=== PATIENT | female | born 2000 | race Caucasian/White ===

== ENCOUNTER 2022-07-25 21:23 | Emergency (ER) | payer OTHER, SELFPAY ==
[2022-07-25] VITALS (8 sets, daily range): BP systolic 119; BP diastolic 80; PULSE 71–96; RESP 18; TEMP 37.1; O2SAT 97–99; BMI 26.5
--- NOTE | 2022-07-25 21:33 | ED_ITS ---
HPI - Weakness General Time Seen by Provider: 21:33 Date Seen: 07/25/22 Chief complaint: Weakness Stated complaint: reaction to antibiotic Time Seen by Provider: 07/25/22 21:33 Source: patient, RN notes reviewed and old records reviewed Mode of arrival: ambulatory Limitations: no limitations History of Present Illness HPI Narrative: Freida is a very pleasant 22-year-old female with recent treatment for C diff who comes to the emergency room complaining of shakiness, weakness and a bad taste in her mouth as long with headache. Patient notes that she had been treated with 2 rounds of antibiotics for otitis media and tested positive for C diff recently. She started vancomycin yesterday and has noticed that her stools have slowed down. She feels somewhat bloated but has not had any vomiting. She notes that she has a headache, a bitter taste in her mouth, shakiness and feels somewhat weak. She talked to the nurse line and they said she needed to come to the emergency room to be evaluated for those symptoms. She has not had any hives or itching. She has not had a fever but has been sweaty today. Related Data Home Medications Medication Instructions Recorded Confirmed albuterol sulfate 90 mcg/actuation 2 puff inhalation Q6H PRN 09/23/21 07/25/22 aerosol inhaler clindamycin phosphate 1 % topical 1 applic topical QDAY 09/23/21 07/25/22 gel, once daily etonogestrel 68 mg subdermal 1 implant subdermal ONCE 09/23/21 07/25/22 implant (Nexplanon) sertraline 100 mg tablet (Zoloft) 100 mg PO QDAY 09/23/21 07/25/22 vancomycin 125 mg capsule 125 mg PO QID 07/25/22 07/25/22 Allergies Allergy/AdvReac Type Severity Reaction Status Date / Time No Known Drug Allergies Allergy Verified 09/23/21 18:32 Review of Systems Status of ROS: Reports: 10 or more systems reviewed and unremarkable except as noted in History and below Const: Reports: malaise; Denies: fever or chills Eyes: Denies: change in vision ENMT: Denies: throat pain, neck pain, throat swelling or difficulty swallowing Cardio: Denies: chest pain, swelling of feet/ankles, lightheadedness or shortness of breath with exertion Resp: Denies: shortness of breath, cough or wheezing GI: Reports: diarrhea; Denies: abdominal pain, nausea, vomiting or difficulty swallowing : Denies: painful urination Musculo: Denies: neck pain Integ/Breast: Denies: rash or itching Neuro: Reports: headache and weakness in extremities; Denies: numbness in extremities Allergy/Immuno: Denies: throat swelling or wheezing PFSH [facility] Medical History Exercise-induced asthma ?J45.990 - Exercise induced bronchospasm (ICD-10) Social History Smoking Status: Never smoker Do you use any of these nicotine containing products: None Second hand tobacco smoke exposure: No How often do you have a drink containing alcohol: never AUDIT-C Alcohol total score: 0 Non-prescribed substance use: denies use Exam Narrative: Exam Narrative: Alert and oriented. Laughing with mom occasionally. She is somewhat diaphoretic. Face is slightly flushed but is not red. Eyes are clear. Oral cavity with moist mucous membranes. Neck is supple. Heart with regular rate and rhythm and lungs are clear to auscultation. Abdomen is soft nontender. Moving all extremities. Const: Vital Signs, click to edit/add: Vital Signs - 24 hr 07/25/22 21:29 07/25/22 22:21 07/25/22 22:30 Temperature 98.7 F Pulse Rate 78 76 Pulse Rate [Pulse Oximeter] 96 Respiratory Rate 18 Blood Pressure [Le ft Upper Arm] 119/80 Pulse Oximetry 97 97 97 Oxygen Delivery Me thod Room Air 07/25/22 22:45 07/25/22 23:00 07/25/22 23:15 Temperature Pulse Rate 72 71 77 Pulse Rate [Pulse Oximeter] Respiratory Rate Blood Pressure [Le ft Upper Arm] Pulse Oximetry 98 98 99 Oxygen Delivery Me thod 07/25/22 23:30 07/25/22 23:45 Temperature Pulse Rate 79 75 Pulse Rate [Pulse Oximeter] Respiratory Rate Blood Pressure [Le ft Upper Arm] Pulse Oximetry 99 98 Oxygen Delivery Me thod Documenting provider has reviewed patient's vital signs: yes Course Course Hospital Course: Will check electrolytes and CBC as well as CRP and urinalysis. Reevaluation(s) Reevaluation #1: Patient notes that she does not feel any different after 1 L of normal saline. I have told her that her labs are all normal at this time including white count CRP electrolytes. She has not urinated at this point. Reevaluation #2: Patient notes that she has been able to urinate now. If this is without evidence of UTI she may be discharged. Vital Signs Vital signs: Initial Vital Signs Temperature 98.7 F 07/25/22 21:29 Temperature Source Temporal Artery Scan 07/25/22 21:29 Pulse Rate 96 07/25/22 21:29 Pulse Rhythm Regular 07/25/22 21:29 Respiratory Rate 18 07/25/22 21:29 Blood Pressure 119/80 07/25/22 21:29 Blood Pressure Mean 93 07/25/22 21:29 Pulse Oximetry 97 07/25/22 21:29 Oxygen Delivery Method Room Air 07/25/22 21:29 Vital Signs Temperature 98.7 F 07/25/22 21:29 Pulse Rate 96 07/25/22 21:29 Respiratory Rate 18 07/25/22 21:29 Blood Pressure 119/80 07/25/22 21:29 Pulse Oximetry 97 07/25/22 21:29 Oxygen Delivery Method Room Air 07/25/22 21:29 Temperature 98.7 F 07/25/22 21:29 Pulse Rate 75 07/25/22 23:45 Respiratory Rate 18 07/25/22 21:29 Blood Pressure 119/80 07/25/22 21:29 Pulse Oximetry 98 07/25/22 23:45 Oxygen Delivery Method Room Air 07/25/22 21:29 MDM - Weakness MDM Narrative Medical decision making narrative: 1. Medication side effect-patient is noting that her stools have improved but that she is feeling somewhat weak, sweaty and has a bad taste in her mouth. This is most likely side effect of vancomycin. Given the fact that it is working well I would not switch this medication and I have encouraged her to keep taking it for the full prescribed dose. I would recommend pushing fluids at this time. Her abdomen is soft and although feeling bloated she has no disco mfort. She has no blood in her stool. She has not been vomiting. She is nontoxic in appearance with we assured reassuring vital signs and labs. 2. Dehydration-heart rate much improved from 96-75. 2. Disposition-home at this time. Seek medical attention for worsening symptoms. Medical Records Attestation: I reviewed the patient's medical records. Lab Data Attestation: I reviewed the patient's lab results. Labs: Lab Results 07/25/22 07/25/22 Range/Units 22:10 23:15 WBC 9.37 (4.50-11.00) K/uL RBC 4.52 (4.00-5.20) m/uL Hgb 12.9 (12.0-16.0) gm/dL Hct 39.4 (33.0-51.0) % MCV 87 (80-100) fL MCH 29 (26-34) pg MCHC 33 (32-36) gm/dL RDW Coeff of Cyn 13.6 (11.5-15.5) % Plt Count 334 (140-440) K/uL Neut % (Auto) 61.3 (42.0-72.0) % Lymph % (Auto) 29.8 (20-44) % [place] % (Auto) 5.9 (0.0-11.0) % Eos % (Auto) 2.3 (0.0-7.0) % Baso % (Auto) 0.4 (0.0-3.0) % Neut # (Auto) 5.74 (1.7-7.0) K/uL Lymph # (Auto) 2.79 (0.90-2.90) K/uL [place] # (Auto) 0.60 (0.00-0.90) K/UL Eos # (Auto) 0.22 (0.00-0.50) K/uL Baso # (Auto) 0.04 (0.00-0.30) K/uL Sodium 135 (135-149) mmol/L Potassium 4.0 (3.6-5.1) mmol/L Chloride 102 (96-114) mmol/L Carbon Dioxide 26 (20-32) mmol/L BUN 12 (5-24) mg/dL Creatinine 0.6 (0.5-1.5) mg/dL Estimated Creat Clear 165.77 Estimated GFR 131 ml/min Glucose 122 H (60-115) mg/dL Calcium 9.0 (8.4-10.6) mg/dL Total Bilirubin 0.6 (0.1-1.5) mg/dL AST 35 (12-35) U/L ALT 25 (4-35) U/L Alkaline Phosphatase 102 (40-150) U/L C-Reactive Protein 1.0 (0.5-1.0) mg/dL Total Protein 7.5 (6.0-8.3) g/dL Albumin 4.2 (3.3-5.0) g/dL Urine Color Yellow (Yellow) Urine Appearance Clear (Clear) Urine pH 5.5 (5.0-8.5) Ur Specific [place] 1.025 (1.000-1.030) Urine Protein Negative (Negative) Urine Glucose (UA) Negative (Negative) Urine Ketones Negative (Negative) Urine Blood 3+ A (Negative) Urine Nitrite Negative (Negative) Urine Bilirubin Negative (Negative) Urine Urobilinogen 0.2 (0.2-1.0) Ur Leukocyte Esterase Negative (Negative) Urine RBC 5-10 A (0-2) Urine WBC 0-2 (0-5) Ur Squamous Epith Cells Few (None-Few) Urine Bacteria None (None) Discharge Plan Discharge Clinical Impression: Drug side effects Patient Disposition: Home, Self-Care Condition: Unchanged Additional Instructions: Push fluids as much as possible fever. Tylenol may be used for discomfort. I am sorry that you do not feel well on this medication but I am encouraging you to take it as directed for its full course. Please return to the emergency room if you are worsening with high fever, vomiting, increasing abdominal pain. Prescriptions: No Action albuterol sulfate 90 mcg/actuation HFA aerosol inhaler 2 puff inhalation Q6H PRN clindamycin phosphate 1 % gel, once daily 1 applic topical QDAY sertraline [Zoloft] 100 mg tablet 100 mg PO QDAY Nexplanon 68 mg implant 1 implant subdermal ONCE Rx Instructions: as a single dose vancomycin 125 mg capsule 125 mg PO QID Follow Up/Referrals: Provider,Not a Local [Primary Care Provider] - Stand Alone Forms: [facility] Info Instructions
[2022-07-25] MEDS: 0.9 % SODIUM CHLORIDE 1000 ml 1,000 ML IV (22:18)
[2022-07-25 22:34] LABS: Albumin* 4.2 g/dL (3.3-5.0); Chloride* 102 mmol/L (96-114); Sodium* 135 mmol/L (135-149)
[2022-07-25 22:37] LABS: Basophils Absolute Auto 0.04 K/uL (0.00-0.30); Basophils Percent Auto 0.4 % (0.0-3.0); Bilirubin Total* 0.6 mg/dL (0.1-1.5); Carbon Dioxide* 26 mmol/L (20-32); Creatinine* 0.6 mg/dL (0.5-1.5); Eosinophils Absolute Auto 0.22 K/uL (0.00-0.50); Eosinophils Percent Auto 2.3 % (0.0-7.0); Est. Creatinine Clearance* 165.77; Estimated Glomerular Filt Rate 131 ml/min; Hematocrit 39.4 % (33.0-51.0); Hemoglobin* 12.9 gm/dL (12.0-16.0); Immature Granulocytes Abs Auto 0.03 K/uL (0.00-0.30); Immature Granulocytes Pct Auto 0.3 %; Lymphocytes Absolute Auto 2.79 K/uL (0.90-2.90); Lymphocytes Percent Auto 29.8 % (20-44); Mean Corpuscular HGB Conc 33 gm/dL (32-36); Mean Corpuscular Hemoglobin 29 pg (26-34); Mean Corpuscular Volume 87 fL (80-100); Monocytes Percent Auto 5.9 % (0.0-11.0); Neutrophils Absolute Auto 5.74 K/uL (1.7-7.0); Neutrophils Percent Auto 61.3 % (42.0-72.0); Platelet Count* 334 K/uL (140-440); RDW Coefficient of Variation % 13.6 % (11.5-15.5); Red Blood Count 4.52 m/uL (4.00-5.20); White Blood Count* 9.37 K/uL (4.50-11.00)
[2022-07-25 22:38] LABS: Alanine Aminotransferase* 25 U/L (4-35); Alkaline Phosphatase* 102 U/L (40-150); Aspartate Amino Transferase* 35 U/L (12-35); Blood Urea Nitrogen* 12 mg/dL (5-24); Glucose* 122 mg/dL (60-115); Total Protein* 7.5 g/dL (6.0-8.3)
[2022-07-25 22:47] LABS: Slide Review Reflex No
[2022-07-25 23:23] LABS: Appearance Urine Clear (Clear); Bilirubin Urine Negative (Negative); Blood Urine 3+ (Negative); Color Urine Yellow (Yellow); Glucose Urine Negative (Negative); Ketones Urine Negative (Negative); Leukocyte Esterase Urine Negative (Negative); Nitrite Urine Negative (Negative); Protein Urine Negative (Negative); Specific Gravity Urine 1.025 (1.000-1.030); Urobilinogen Urine 0.2 (0.2-1.0); pH Urine 5.5 (5.0-8.5)
[2022-07-25 23:30] LABS: Squamous Epithelial Cell Urine Few (None-Few); WBC Urine 0-2 (0-5)
[2022-07-26] VITALS: PULSE 78; O2SAT 98
== END 2022-07-26 00:05 | disposition home or self-care (01) ==
PROVIDERS: Emergency Provider Family Medicine
DX: E86.0 Dehydration (principal); T36.8X5A Adverse effect of other systemic antibiotics, initial encounter
CPT/HCPCS: 36415; 80053; 81001; 85025; 86140; 99283; 99284; J7030

== ENCOUNTER 2022-10-28 15:55 | Emergency (ER) | payer OTHER, SELFPAY ==
[2022-10-28 16:00] VITALS: BP 113/78; PULSE 89; RESP 18; TEMP 36.1; O2SAT 98; BMI 33.5
--- NOTE | 2022-10-28 17:22 | ED_ITS ---
HPI - General Adult General Chief complaint: Skin/Abscess/Foreign Body Stated complaint: Needs rabies shot Time Seen by Provider: 10/28/22 17:13 Source: patient Mode of arrival: ambulatory Limitations: no limitations History of Present Illness HPI narrative: 22-year-old female coming in today after suffering a cat scratch or bite by the neighbor's cat today. She was told by the cats assistant attorney general that she needed a rabies series so she presents to the ER for that. The animal had been vaccinated for rabies but apparently the vaccine had , unclear when. Related Data Home Medications Medication Instructions Recorded Confirmed albuterol sulfate 90 mcg/actuation 2 puff inhalation Q6H PRN 09/23/21 10/28/22 aerosol inhaler clindamycin phosphate 1 % topical 1 applic topical QDAY 09/23/21 10/28/22 gel, once daily etonogestrel 68 mg subdermal 1 implant subdermal ONCE 09/23/21 10/28/22 implant (Nexplanon) sertraline 100 mg tablet (Zoloft) 100 mg PO QDAY 09/23/21 10/28/22 vancomycin 125 mg capsule 125 mg PO QID 07/25/22 10/28/22 Allergies Allergy/AdvReac Type Severity Reaction Status Date / Time No Known Drug Allergies Allergy Verified 09/23/21 18:32 Review of Systems Status of ROS: Reports: 6 or more systems reviewed and unremarkable except as noted in History and below [facility] Medical History Exercise-induced asthma ?J45.990 - Exercise induced bronchospasm (ICD-10) Social History Smoking Status: Never smoker Do you use any of these nicotine containing products: None Second hand tobacco smoke exposure: No How often do you have a drink containing alcohol: monthly or less AUDIT-C Alcohol total score: 1 Non-prescribed substance use: marijuana (any form) service: No Exam Narrative: Exam Narrative: Patient has approximately a 1 cm what appears to be a scratch that barely scratches the dermis on the palmar surface of the hand just proximal to the base of the thumb. There is no surrounding erythema or swelling. Const: Vital Signs, click to edit/add: Vital Signs - 24 hr 10/28/22 16:00 Temperature 97.0 F L Pulse Rate [Pulse Oximeter] 89 Respiratory Rate 18 Blood Pressure [Ri ght Upper Arm] 113/78 Pulse Oximetry 98 Oxygen Delivery Me thod Room Air Course Vital Signs Vital signs: Initial Vital Signs Temperature 97.0 F L 10/28/22 16:00 Temperature Source Temporal Artery Scan 10/28/22 16:00 Pulse Rate 89 10/28/22 16:00 Respiratory Rate 18 10/28/22 16:00 Blood Pressure 113/78 10/28/22 16:00 Blood Pressure Mean 89 10/28/22 16:00 Blood Pressure Position Sitting 10/28/22 16:00 Pulse Oximetry 98 10/28/22 16:00 Oxygen Delivery Method Room Air 10/28/22 16:00 Vital Signs Temperature 97.0 F L 10/28/22 16:00 Pulse Rate 89 10/28/22 16:00 Respiratory Rate 18 10/28/22 16:00 Blood Pressure 113/78 10/28/22 16:00 Pulse Oximetry 98 10/28/22 16:00 Oxygen Delivery Method Room Air 10/28/22 16:00 Temperature 97.0 F L 10/28/22 16:00 Pulse Rate 89 10/28/22 16:00 Respiratory Rate 18 10/28/22 16:00 Blood Pressure 113/78 10/28/22 16:00 Pulse Oximetry 98 10/28/22 16:00 Oxygen Delivery Method Room Air 10/28/22 16:00 Medical Decision Making MDM Narrative Medical decision making narrative: 22-year-old female status post cat scratch or bite-at this time I counseled the patient she does not need a rabies series given the superficial nature of this scratch. The patient is adamant that she needs to have this as she is very scared of getting rabies. I discussed with her that this kind of injury will not result in rabies. Patient still a request vaccine series. Therefore the 1st dose is given today and a prescription for the remainder of the doses given to the patient. Discharge Plan Discharge Clinical Impression: Cat scratch Patient Disposition: Home, Self-Care Condition: Stable Prescriptions: No Action albuterol sulfate 90 mcg/actuation HFA aerosol inhaler 2 puff inhalation Q6H PRN clindamycin phosphate 1 % gel, once daily 1 applic topical QDAY sertraline [Zoloft] 100 mg tablet 100 mg PO QDAY Nexplanon 68 mg implant 1 implant subdermal ONCE Rx Instructions: as a single dose vancomycin 125 mg capsule 125 mg PO QID Hold Instructions: Order Change Follow Up/Referrals: Provider,Not a Local [Primary Care Provider] - Stand Alone Forms: [facility] Info Instructions
--- NOTE | 2022-10-28 18:07 | ED.NURSE ---
Pt declines rabies vaccine.
== END 2022-10-28 18:05 | disposition home or self-care (01) ==
LOC: ED 17:59
PROVIDERS: Emergency Provider Family Medicine
DX: S60.579A Other superficial bite of hand of unspecified hand, initial encounter (principal); W55.01XA Bitten by cat, initial encounter
CPT/HCPCS: 99282; 99283